=== PATIENT | female | born 1990 | race Caucasian/White ===

== ENCOUNTER 2016-12-12 16:48 | Outpatient (CLI) | payer OTHER ==
--- NOTE | 2016-12-12 18:33 | DIAGNOSTIC IMAGING REPORT ---
PROCEDURE: US COMPLETE PELVIC W/TRANSVAG INDICATION: PELVIC PAIN TECHNIQUE: Transabdominal and endovaginal cruz scale and color Doppler sonographic images of the female pelvis were obtained. COMPARISON: Pelvic ultrasound 07/07/2016 FINDINGS: TRANSABDOMINAL SCANS: The uterus is of normal size 4.6 x 5.8 cm Kidneys are normal. There is a 2 cm hemangioma in the right lobe the liver. TRANSVAGINAL SCANS: The uterus is retroverted Myometrium is normal. The endometrium measures 10.7 mm. Right ovary is normal measuring 3.6 x 3.1 x 2 cm. There is a corpus luteum cyst on the right ovary measuring 2.4 by 1.9 x 1.1 cm. The left ovary is normal measuring 3.2 x 1.5 x 2.3 cm There is a trace of free fluid left greater than right. IMPRESSION: 1. Corpus luteum cyst right ovary measuring 2.4 cm. 2. Hepatic hemangioma
== END 2016-12-12 23:00 ==
LOC: US SRH 16:48
DX: N83.11 Corpus luteum cyst of right ovary (principal); D18.09 Hemangioma of other sites

== ENCOUNTER 2017-05-07 20:38 | Emergency (ER) | payer OTHER ==
--- NOTE | 2017-05-07 22:24 | DIAGNOSTIC IMAGING REPORT ---
PROCEDURE: XR SHOULDER 2 OR MORE VW-RIGHT INDICATION: TRAUMA/INJURY TECHNIQUE: For views. COMPARISON: There has made radiographs of the right shoulder on 12/05/2015. FINDINGS: There is mild widening of the right acromioclavicular joint. Right glenohumeral joint is normal. The rest of the osseous structures are normal. IMPRESSION: 1. Mild widening of the right acromioclavicular joint suggests grade I- II AC separation (acute versus chronic). 2. Otherwise negative right shoulder. 3. Findings discussed with PAC. Beverly
--- NOTE | 2017-05-07 23:03 | ED NURSING NOTES ---
Clinical Report - Nurses [facility] [address] [place] [address] 05/07/2017 20:37 [id number] TRI[facility] Triage time 20:43 May 07 2017. Acuity: LEVEL 3. Chief Complaint: INJURY TO RIGHT SHOULDER. CARLOS COMA SCORE: Carlos Coma Scale: 15- eyes open spontaneously (4); best verbal response- oriented x 4 (5); best motor response- obeys commands (6). --20:53 Becki Galarza R.N. 20:43 05/07/17. BP: 117/77. HR: 66. RR: 18. O2 saturation: 100%. Temp: 98.4 F. Pain level now 8/10. --20:53 Becki Galarza R.N. Weight: 59.8 kg stated. Height/Length: 62 inches Per Patient. BMI: 24.1. --20:51 Becki Galarza R.N. Medications None. --20:49 Becki Galarza R.N. Allergies No Known Drug Allergy. --20:49 Becki Galarza R.N. History Arrived by private vehicle. Historian: patient. Accompanied by family. This occurred just prior to arrival. Occurred at home. ( Patient was grabbing her phone and her shoulder went out of socket. Patient has her shoulder pop out frequently. Usually when this happens she can easily just pop it back in but this time she couldn't until on the way over she finally got it back in. This time she has increased pain and states it feels different then before.). 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 PAST MEDICAL HX: Tetanus status: up-to-date. Immunizations: up-to-date. Last normal menstrual period- not consistent with periods one day long. is fixed. SOCIAL HX: Never smoker. No alcohol use or drug use. SELF HARM ASSESSMENT: A self harm assessment was performed. The patient answered "no" to the question "Have you recently felt down, depressed, or hopeless?" and "Do you have thoughts of harming or killing yourself?". FALL RISK ASSESSMENT: Fall risk assessment completed. No fall risk identified. NUTRITIONAL RISK ASSESSMENT: The nutritional risk assessment revealed no deficiencies. FUNCTIONAL ASSESSMENT: Functional assessment: no impairments noted. LEARNING NEEDS ASSESSMENT: The learning needs assessment revealed no barriers. ABUSE ASSESSMENT: Abuse assessment: (yes) The patient was asked "Do you feel safe in your home?". SKIN INTEGRITY ASSESSMENT: Skin integrity risk assessment completed. No skin integrity risk identified. --20:53 Becki Galarza R.N. PROBLEMS: no known problems. ADDITIONAL SURGERIES: no known surgeries. Interventions ID band on patient. --20:53 Becki Galarza R.N. PHYSICAL ASSESSMENT Ambulatory to room. GENERAL / NEURO / PSYCH: Oriented X 4. Appears in pain, anxious and in distress. EXTREMITIES: Capillary refill is less than 2 seconds in the extremities. Extremity pulses are within normal limits. Neuro-vascular status intact to the extremity. Right shoulder: tenderness. SKIN: Skin intact. Skin is warm and dry. --20:53 Becki Galarza R.N. NURSING PROGRESS NOTES The initial plan of care for this patient includes an assessment with efforts to address patient positioning, appropriate ambient lighting and comfortable environmental temperature; impairment of the musculoskeletal system. Cold pack applied. Reassurance given. Call light placed in reach. Side rails up x 1. Bed placed in lowest position. Brakes of bed on. --20:54 Becki Galarza R.N. EKG time: (2119). EKG was ordered, performed by a tech and shown to the ED physician. --21:22 Jong Kebede, SID Epic Professional Patient ID band checked for patient name and birthdate: patient confirmed. Blood samples drawn from the left antecubital space with syringe and 21g butterfly by tech per protocol ; labeled in presence of the patient and sent to lab: rainbow set. --21:36 Jong Kebede, SID Epic Professional Patient ID band checked for patient name and birthdate: patient confirmed urine collected with return of yellow-colored clear urine; sample sent to lab for urinalysis and HCG. Specimen labeled in the presence of the patient. --21:36 Jong Kebede ER Epic Professional 23:05 05/07/2017 Motrin PO Tablets 600 mg given. Allergies verified and confirmed 5 rights. --23:05 Becki Galarza R.N. DISPOSITION / DISCHARGE Departure time: 23:May 07 2017. Condition at departure: improved. No learning barriers present. Discharge instructions provided and reviewed with the patient and spouse. Reviewed warnings. Reviewed medication(s). Treatments reviewed. Reviewed referrals. Patient verbalized understanding. Written instructions provided in Solomon Islander. The patient was discharged home and accompanied by spouse. She left the Emergency Department ambulatory and via private vehicle. Spouse driving. --23:09 Becki Galarza R.N. 23:09 05/07/17. BP: 111/44. HR: 55. RR: 18. O2 saturation: 100%. Temp: 98.4 F. Pain level now 7/10. --23:09 Becki Galarza R.N. Locked/Released at 05/07/2017 23:10 by Becki Galarza R.N.
--- NOTE | 2017-05-07 23:03 | ED CLINICAL REPORT ---
Clinical Report - Physicians/Mid Levels [facility] [address] [place] [address] 05/07/2017 20:37 Patient: MERLYN JANG Time Seen: 0900; initial patient contact. Arrived- By private vehicle. Historian- patient. HISTORY OF PRESENT ILLNESS Chief Complaint: Injury to right shoulder. The injury happened today. Occurred at home. ( Tripped at home. Patient states that her shoulder popped out after this. Reports no other pain or injury at this time.). Patient is experiencing moderate pain. Patient denies injury to the head or neck. No other injury. ( Patient reports no loss consciousness.). REVIEW OF SYSTEMS No tingling, numbness, weakness, suspected foreign body or skin laceration. All systems otherwise negative, except as recorded above. PAST HISTORY See nurses notes. Tetanus immunization status is up-to-date. Problems: no known problems. Additional Surgeries: no known surgeries. Medications: None. Allergies: No Known Drug Allergy. SOCIAL HISTORY Never smoker. No alcohol use or drug use. No recent travel. Is a local resident. PHYSICAL EXAM Appearance: Alert. Oriented X3. No acute distress. (cooperative. Polite. Well-dressed. Well-developed well-nourished). Neck: Normal inspection. Neck supple. C-spine non-tender. CVS: Normal heart rate and rhythm. Heart sounds normal. Pulses normal. Respiratory: No respiratory distress. Breath sounds normal. Chest nontender. Abdomen: No visible injury. Soft and nontender. Bowel sounds normal. Extremities: (mild tenderness over the before meals joint. No tenting of the skin. No crepitus. No bony abnormalities. No step-offs at the glenohumeral joint. Appears to be symmetrical to the contralateral side. Overlying skin changes. Compartments are soft. Patient is neurovascularly intact. Radial pulses are 2+ and symmetrical to the contralateral side. Patient is able to touch the contralateral shoulder with the affected extremity). Neuro, Vascular and Tendons: Sensation intact. Motor intact. Vascular status intact. Tendon function intact. Tendon visualized, uninjured. LABS, X-RAYS, AND EKG EKG: No acute process. No acute ischemia. Normal EKG. Normal sinus rhythm. Rate: 62. Normal P waves. Normal PAUL. Normal QRS complex. Normal axis. Normal ST and T waves, QT and QTc. The study has been interpreted contemporaneously. The study has been independently viewed by me. The EKG appears to be a good tracing. Laboratory Tests: UA-Culture if indicated: (ISSA: 05/07/2017 21:34) ( [facility] 05/07/2017 21:55) Final results Test Result Flag Units (Reference) URINE COLOR YELLOW URINE APPEARANCE CLEAR URINE GLUCOSE NEGATIVE (NEGATIVE) URINE BILIRUBIN NEGATIVE (NEGATIVE) URINE KETONE NEGATIVE (NEGATIVE) URINE SPECIFIC GRAVITY 1.010 (1.010-1.030) URINE PH 6.0 (5.0-8.0) URINE PROTEIN NEGATIVE (NEGATIVE) URINE UROBILINOGEN 0.2 EU/dL (0.2-1.0) URINE NITRITE NEGATIVE (NEGATIVE) URINE BLOOD NEGATIVE (NEGATIVE) URINE LEUK ESTERASE NEGATIVE (NEGATIVE) URINE RBC NONE SEEN rbc/hpf (0-1) URINE WBC NONE SEEN wbc/hpf (0-1) URINE EPITHELIAL CELLS 0-1 EPI/hpf (0-5) URINE BACTERIA NONE SEEN (NONE SEEN) URINE COMMENT CULT NOT INDICATED URINE CULTURES ARE SET-UP BASED ON THE FOLLOWING CRITERIA:POSITIVE NITRITEPOSITIVE LEUKOCYTE ESTERASEGREATER THAN 10 WHITE BLOOD CELLSMODERATE (2+) OR GREATER BACTERIA Urine: (ISSA: 05/07/2017 21:34) ( [facility] 05/07/2017 21:46) Final results Test Result Flag Units (Reference) URINE NEGATIVE CBC w Diff: (ISSA: 05/07/2017 21:34) ( [facility] 05/07/2017 21:48) Final results Test Result Flag Units (Reference) WHITE BLOOD COUNT 8.5 K/uL (4.5-11.5) RED BLOOD COUNT 4.24 M/uL (4.00-5.20) HEMOGLOBIN 13.1 gm/dL (12.0-16.0) HEMATOCRIT 38.3 % (36.0-46.0) MEAN CELL VOLUME 90 fL (80-100) MEAN CORPUSCULAR HGB 31 pg (26-34) MEAN CORPUSCULAR HGB CONC 34 g/dL (31-37) RED CELL DISTRIBUTION WIDTH 12.3 % (11.6-14.8) PLATELET COUNT 213 K/uL (150-400) NEUTROPHIL % 72.5 % (50-75) LYMPH % 19.6 L % (25-40) MONO % 6.4 % (3-14) EOSINOPHIL % 1.3 % (0-4) BASOPHIL % 0.2 % (0-2) CMP: (ISSA: 05/07/2017 21:34) ( MsgRcvd 05/07/2017 22:25) Final results Test Result Flag Units (Reference) GLUCOSE 101 mg/dL (70-110) BUN 16 mg/dL (7-18) CREATININE 1.0 mg/dL (0.6-1.3) Estimated GFR >60 mL/min Estimated GFR- >60 mL/min Note: Persistent reduction over 3 months in eGFR<60 mL/min/1.73 m2 defines CKD. Patients with eGFR values>=60 mL/min/1.73 m2 may also have CKD if evidence ofpersistent proteinuria. Additional information may be foundat www.kidney.org. SODIUM 140 mmol/L (136-145) POTASSIUM 3.9 mmol/L (3.5-5.1) CHLORIDE 106 mmol/L (98-107) CARBON DIOXIDE 25 mmol/L (21-32) CALCIUM 8.6 mg/dL (8.5-10.1) TOTAL PROTEIN 6.8 g/dL (6.4-8.2) ALBUMIN 4.0 g/dL (3.3-5.0) BILIRUBIN, TOTAL 0.3 mg/dL (0.0-1.0) ALKALINE PHOSPHATASE 68 U/L (46-116) AST (SGOT) 13 L U/L (15-37) ALT (SGPT) 20 U/L (12-78) THYROID STIMULATING HORMONE 1.343 uIU/mL (0.34-3.74) . PROGRESS AND PROCEDURES Course of Care: the patient is a pleasant 27-year-old female with past medical history significant for shoulder injuries presenting for evaluation of right-sided shoulder pain. At this time differential diagnosis includes dislocation of the glenohumeral joint versus before meals joint dislocation versusfracture. Patient is agreeable to the treatment and plan. Pain medication as been offered. The patient's workup was remarkable for the findings above. Had a discussion with the patient in regards to her exact injury. Patient is unsure if it was the before meals joint that is dislocated or first of her shoulder. Had a long discussion patient in regards to evaluation and management of the patient's shoulder. Patient states that she had recently had an MRI however was not called about the results. I discussed with the patient her workup here in the emergency department including diagnosis, home care, follow-up, and return precautions. All questions have been answered. The patient expressed understanding of these instructions and was agreeable to them. Repeat examination continues to be benign. No neurovascular compromise. Disposition: Discharged. Condition: good. CLINICAL IMPRESSION 05/07/2017 20:43 BP: 117/77. HR: 66. RR: 18. O2 saturation: 100%. Temp: 98.4 F. Near syncope .12 lead EKG performed. (acute). Blood pressure normal. Oxygen saturation normal. Type II separation of the right AC joint (acute). INSTRUCTIONS Warnings: GENERAL WARNINGS: Return or contact your physician immediately if your condition worsens or changes unexpectedly, if not improving as expected, or if other problems arise. Specifically return if pain, vomiting, bleeding, breathing difficulty or fever. Your Current Medications: CONTINUE TAKING THE FOLLOWING MEDICATIONS: None*. OTC Medications: Motrin (available over the counter): take according to label instructions. Follow-up: Return to the emergency department as needed. Follow up with your doctor in three days as scheduled. Reason for referral: recheck today's concerns. Summary of care provided to patient via paper. Screening today revealed the patient's blood pressure to be in the normal range. The patient should follow up with a primary care provider for blood pressure management. Understanding of the discharge instructions verbalized by patient. (Electronically signed by Vernon June Dr. 05/08/2017 8:13)
--- NOTE | 2017-05-07 23:03 | ED NURSING NOTES ---
Clinical Report - Nurses [facility] [address] [place] [address] 05/07/2017 20:37 [id number] TRI[facility] Triage time 20:43 May 07 2017. Acuity: LEVEL 3. Chief Complaint: INJURY TO RIGHT SHOULDER. CARLOS COMA SCORE: Carlos Coma Scale: 15- eyes open spontaneously (4); best verbal response- oriented x 4 (5); best motor response- obeys commands (6). --20:53 Becki Galarza R.N. 20:43 05/07/17. BP: 117/77. HR: 66. RR: 18. O2 saturation: 100%. Temp: 98.4 F. Pain level now 8/10. --20:53 Becki Galarza R.N. Weight: 59.8 kg stated. Height/Length: 62 inches Per Patient. BMI: 24.1. --20:51 Becki Galarza R.N. Medications None. --20:49 Becki Galarza R.N. Allergies No Known Drug Allergy. --20:49 eBcki Galarza R.N. History Arrived by private vehicle. Historian: patient. Accompanied by family. This occurred just prior to arrival. Occurred at home. ( Patient was grabbing her phone and her shoulder went out of socket. Patient has her shoulder pop out frequently. Usually when this happens she can easily just pop it back in but this time she couldn't until on the way over she finally got it back in. This time she has increased pain and states it feels different then before.). 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 PAST MEDICAL HX: Tetanus status: up-to-date. Immunizations: up-to-date. Last normal menstrual period- not consistent with periods one day long. is fixed. SOCIAL HX: Never smoker. No alcohol use or drug use. SELF HARM ASSESSMENT: A self harm assessment was performed. The patient answered "no" to the question "Have you recently felt down, depressed, or hopeless?" and "Do you have thoughts of harming or killing yourself?". FALL RISK ASSESSMENT: Fall risk assessment completed. No fall risk identified. NUTRITIONAL RISK ASSESSMENT: The nutritional risk assessment revealed no deficiencies. FUNCTIONAL ASSESSMENT: Functional assessment: no impairments noted. LEARNING NEEDS ASSESSMENT: The learning needs assessment revealed no barriers. ABUSE ASSESSMENT: Abuse assessment: (yes) The patient was asked "Do you feel safe in your home?". SKIN INTEGRITY ASSESSMENT: Skin integrity risk assessment completed. No skin integrity risk identified. --20:53 Becki Galarza R.N. PROBLEMS: no known problems. ADDITIONAL SURGERIES: no known surgeries. Interventions ID band on patient. --20:53 Becki Galarza R.N. PHYSICAL ASSESSMENT Ambulatory to room. GENERAL / NEURO / PSYCH: Oriented X 4. Appears in pain, anxious and in distress. EXTREMITIES: Capillary refill is less than 2 seconds in the extremities. Extremity pulses are within normal limits. Neuro-vascular status intact to the extremity. Right shoulder: tenderness. SKIN: Skin intact. Skin is warm and dry. --20:53 Becki Galarza R.N. NURSING PROGRESS NOTES The initial plan of care for this patient includes an assessment with efforts to address patient positioning, appropriate ambient lighting and comfortable environmental temperature; impairment of the musculoskeletal system. Cold pack applied. Reassurance given. Call light placed in reach. Side rails up x 1. Bed placed in lowest position. Brakes of bed on. --20:54 Becki Galarza R.N. EKG time: (2119). EKG was ordered, performed by a tech and shown to the ED physician. --21:22 Jong Kebede, SID Science Editor Patient ID band checked for patient name and birthdate: patient confirmed. Blood samples drawn from the left antecubital space with syringe and 21g butterfly by tech per protocol ; labeled in presence of the patient and sent to lab: rainbow set. --21:36 Jong Kebede, SID Science Editor Patient ID band checked for patient name and birthdate: patient confirmed urine collected with return of yellow-colored clear urine; sample sent to lab for urinalysis and HCG. Specimen labeled in the presence of the patient. --21:36 Jong Kebede ER Science Editor 23:05 05/07/2017 Motrin PO Tablets 600 mg given. Allergies verified and confirmed 5 rights. --23:05 Becki Galarza R.N. DISPOSITION / DISCHARGE Departure time: 23:May 07 2017. Condition at departure: improved. No learning barriers present. Discharge instructions provided and reviewed with the patient and spouse. Reviewed warnings. Reviewed medication(s). Treatments reviewed. Reviewed referrals. Patient verbalized understanding. Written instructions provided in Puerto Rican. The patient was discharged home and accompanied by spouse. She left the Emergency Department ambulatory and via private vehicle. Spouse driving. --23:09 Becki Galarza R.N. 23:09 05/07/17. BP: 111/44. HR: 55. RR: 18. O2 saturation: 100%. Temp: 98.4 F. Pain level now 7/10. --23:09 Becki Galarza R.N. Locked/Released at 05/07/2017 23:10 by Becki Galarza R.N.
--- NOTE | 2017-05-07 23:03 | ED ORDER SUMMARY ---
..... Patient: MERLYN JANG OrderSheet [facility] VisitID: [id number] [place] [address] 27y, F Registration Date/Time: 05/07/2017 ORDER SHEET Weight: 59.8 kg (stated) Allergies: No Known Drug Allergy GENERAL ORDERS: Shoulder 2V or more Right Urgent (20:55 05/07/2017 EKoroleva P.A.-C) (Ack 20:57 LMuller) ([facility] CBC w Diff Urgent (21:16 05/07/2017 Sherrie Woods) (21:39 LWhalen R.N.) CMP Urgent (21:16 05/07/2017 Sherrie Woods) (21:39 LWhalen R.N.) UA-Culture if indicated Urgent (21:16 05/07/2017 Sherrie Woods) (21:39 LWhalen R.N.) Urine Urgent (21:16 05/07/2017 Sherrie Woods) (21:39 LWhalen R.N.) TSH Urgent (21:16 05/07/2017 Sherrie Woods) (21:39 LWhalen R.N.) EKG - ER Stat (21:16 05/07/2017 Sherrie Woods) (21:21 [facility] Inspector Automatic Typewriter) MEDICATION ORDERS: Motrin PO 600 mg (NOW) (23:02 05/07/2017 Sherrie Woods) (23:05 LWhalen R.N.) IV FLUIDS: ORDER SHEET NOTES: [Electronically signed by Becki Galarza R.N. (23:10 05/07/2017)] [Electronically signed by Vernon June Dr. (08:13 05/08/2017)] [Electronically locked/signed by Becki Galarza R.N. (23:05/07/2017)]
--- NOTE | 2017-05-07 23:03 | ED ORDER SUMMARY ---
..... Patient: MERLYN JANG OrderSheet [facility] VisitID: [id number] [place] [address] 27y, F Registration Date/Time: 05/07/2017 ORDER SHEET Weight: 59.8 kg (stated) Allergies: No Known Drug Allergy GENERAL ORDERS: Shoulder 2V or more Right Urgent (20:55 05/07/2017 EKoroleva P.A.-C) (Ack 20:57 LMuller) (21:09 [facility] CBC w Diff Urgent (21:16 05/07/2017 Sherrie Woods) (21:39 LWhalen R.N.) CMP Urgent (21:16 05/07/2017 Sherrie Woods) (21:39 LWhalen R.N.) UA-Culture if indicated Urgent (21:16 05/07/2017 Sherrie Woods) (21:39 LWhalen R.N.) Urine Urgent (21:16 05/07/2017 Sherrie Woods) (21:39 LWhalen R.N.) TSH Urgent (21:16 05/07/2017 Sherrie Woods) (21:39 LWhalen R.N.) EKG - ER Stat (21:16 05/07/2017 Sherrie Woods) (21:21 [facility] Records Technician[facility] MEDICATION ORDERS: Motrin PO 600 mg (NOW) (23:02 05/07/2017 Sherrie Woods) (23:05 LWhalen R.N.) IV FLUIDS: ORDER SHEET NOTES: [Electronically signed by Becki Galarza R.N. (23:10 05/07/2017)] [Electronically signed by Vernon June Dr. (08:13 05/08/2017)] [Electronically locked/signed by Becki Galarza R.N. (23:05/07/2017)]
--- NOTE | 2017-05-08 08:14 | ED MED RECONCILIATION SUMMARY ---
Patient: MERLYN JANG Medication Reconciliation Report [facility] VisitID: [id number] [place] [address] 27y, F Registration Date/Time: 05/07/2017 Weight: 59.8 kg Height/Length: 62 in. BMI: 24.1 ALLERGIES: No Known Drug Allergy The patient's Home Medications are listed below: NONE. The source(s) of the original Home Medication information: Not obtained. The following Medications were given to the patient in the Emergency Department: Motrin [PO] PO 600 mg, administered: 05/07/2017 11:05:00 PM The following Medications were prescribed to the patient: Motrin (available over the counter): take according to label instructions. -- Vernon June Dr.
--- NOTE | 2017-05-08 08:14 | ED MAR SUMMARY ---
..... Medication Administration Record [facility] [address] [place] [address] Patient: MERLYN JANG Visit ID: [id number] 27y, F Weight: 59.8 kg Height/Length: 62 in BMI: 24.1 ALLERGIES: No Known Drug Allergy Given 23:05 05/07/2017 Becki Galarza RJennifer Medication Administered: MOTRIN [PO], Dose: 600 mg Tablets PO. Medication Ordered: Motrin PO 600 mg (NOW).
--- NOTE | 2017-05-08 08:14 | ED DISCHARGE INSTRUCTIONS ---
Patient: MERLYN JANG General Instructions [facility] VisitID: [id number] [place] [address] 27y, F Registration Date/Time: 05/07/2017 05/07/2017 20:43 BP: 117/77. HR: 66. RR: 18. O2 saturation: 100%. Temp: 98.4 F. Near syncope .12 lead EKG performed. (acute). Blood pressure normal. Oxygen saturation normal. Type II separation of the right AC joint (acute). INSTRUCTIONS Warnings: GENERAL WARNINGS: Return or contact your physician immediately if your condition worsens or changes unexpectedly, if not improving as expected, or if other problems arise. Specifically return if pain, vomiting, bleeding, breathing difficulty or fever. Your Current Medications: CONTINUE TAKING THE FOLLOWING MEDICATIONS: None*. OTC Medications: Motrin (available over the counter): take according to label instructions. Follow-up: Return to the emergency department as needed. Follow up with your doctor in three days as scheduled. Reason for referral: recheck today's concerns. Summary of care provided to patient via paper. Screening today revealed the patient's blood pressure to be in the normal range. The patient should follow up with a primary care provider for blood pressure management. Understanding of the discharge instructions verbalized by patient. ADDITIONAL INFORMATION Sprain, A-C Joint The A-C JOINT holds the collar bone (clavicle) to the shoulder. A sprain of this joint is a tearing of the ligaments that hold the bones together. The tear may be partial or complete. An A-C sprain will take about 36 weeks to heal, depending on how severe it is. A "complete A-C ligament tear" (also called "A-C separation") will allow the collar bone to rise up, causing a noticeable bump on the shoulder top. Since the ligament heals in this position, the bump is permanent. It is possible to have surgery to correct the appearance, although normal shoulder function will return even without surgery. This injury is usually treated with a sling or "shoulder immobilizer". Once healed, you can expect full recovery of shoulder function. Home care The following guidelines will help you care for your sprain at home: Use the sling when awake until your next appointment. If the sling becomes loose, adjust it so that your forearm is level with the ground, and the shoulder feels well supported. You may remove the sling to bathe and remove it at night to sleep. Apply an ice pack (ice cubes in a plastic bag, wrapped in a towel) over the injured area for 20 minutes every 12 hours the first day for pain relief. Continue this 34 times a day until the pain and swelling goes away. You may use acetaminophen or ibuprofen to control pain, unless another pain medicine was prescribed.If you have chronic liver or kidney disease or ever had a stomach ulcer or GI bleeding, talk with your doctor before using these medicines. Shoulder joints become stiff if left in a sling for too long. Range of motion exercises should usually be started within the first ten days after injury. Consult your doctor on what type of exercises to do and how soon to start. The sling may be removed to shower or bathe. Follow-up care Any X-rays you had today dont show any broken bones, breaks, or fractures. Sometimes fractures dont show up on the first X-ray. Bruises and sprains can sometimes hurt as much as a fracture. These injuries can take time to heal completely. If your symptoms dont improve or they get worse, talk with your doctor. You may need a repeat X-ray. When to seek medical care Get prompt medical attention if any of the following occur: Pain or swelling or bruising increases Fingers become cold, blue, numb or tingly Near-Fainting:Uncertain Cause Fainting (syncope) is a temporary loss of consciousness ("passing out"). It occurs when blood flow to the brain is reduced. Near-fainting ("near-syncope") is like fainting, but you do not fully "pass out." The common minor causes of near fainting include sudden fear, pain, emotional stress, overexertion, or quickly standing up after sitting or lying for a long time. The more serious causes for near fainting are due to either a very slow or very fast heart beat, dehydration, anemia, blood loss, problems related to the heart, or taking too much high blood pressure medicine. The exact cause of your episode is not certain. More tests may be required. Therefore, it is important that you follow up with your doctor as advised. Home Care: 1) Rest today. Resume your normal activities as soon as you are feeling back to normal. 2) If you become light-headed or dizzy, lie down right away or sit with your head between your knees. 3) Because we do not know the exact cause of your near fainting spell, another spell could occur without warning. Therefore, do not drive a car or use dangerous equipment. D o not take a bath alone (use a shower instead). Do not swim alone. You can resume these activities when your doctor says that you are no longer in danger of having a near fainting spell. 4) Stay well hydrated by drinking enough fluid each day. Follow Up with your doctor as instructed. Get Prompt Medical Attention if any of the following occur: -- Another fainting spell occurs, and it is not explained by the common causes listed above -- Chest, arm, neck, jaw, back or abdominal pain -- Shortness of breath -- Weakness, tingling or numbness in one side of the face, one arm or leg -- Slurred speech, confusion, trouble walking or seeing -- Seizure -- Blood in vomit, stools (black or red color) -- (In women) unexpected vaginal bleeding You have been given the following additional information: AC Joint Sprain Near Syncope, Unknown (Electronically signed by Vernon June Dr. 05/08/2017 8:13)
--- NOTE | 2017-05-08 08:14 | ED MAR SUMMARY ---
..... Medication Administration Record [facility] [address] [place] [address] Patient: MERLYN JANG Visit ID: [id number] 27y, F Weight: 59.8 kg Height/Length: 62 in BMI: 24.1 ALLERGIES: No Known Drug Allergy Given 23:05 05/07/2017 Becki Galarza RJennifer Medication Administered: MOTRIN [PO], Dose: 600 mg Tablets PO. Medication Ordered: Motrin PO 600 mg (NOW).
--- NOTE | 2017-05-08 08:14 | ED MED RECONCILIATION SUMMARY ---
Patient: MERLYN JANG Medication Reconciliation Report [facility] VisitID: [id number] [place] [address] 27y, F Registration Date/Time: 05/07/2017 Weight: 59.8 kg Height/Length: 62 in. BMI: 24.1 ALLERGIES: No Known Drug Allergy The patient's Home Medications are listed below: NONE. The source(s) of the original Home Medication information: Not obtained. The following Medications were given to the patient in the Emergency Department: Motrin [PO] PO 600 mg, administered: 05/07/2017 11:05:00 PM The following Medications were prescribed to the patient: Motrin (available over the counter): take according to label instructions. -- Vernon June Dr.
== END 2017-05-07 23:08 | disposition home or self-care (01) ==
LOC: ED SRH 20:38
DX: S43.101A Unspecified dislocation of right acromioclavicular joint, initial encounter (principal); W18.40XA Slipping, tripping and stumbling without falling, unspecified, initial encounter; Y92.89 Other specified places as the place of occurrence of the external cause; Y92.009 Unspecified place in unspecified non-institutional (private) residence as the place of occurrence of the external cause; Y99.9 Unspecified external cause status; R55 Syncope and collapse